=== PATIENT | female | born 1980 | race Caucasian/White ===

== ENCOUNTER 2016-12-18 19:38 | Observation (INO) | payer MEDICAID ==
[2016-12-18] MEDS ORDERED: NORMAL SALINE 1000 ML 1,000 ML IV ONE (20:21)
[2016-12-18] MEDS ORDERED: ONDANSETRON HCL INJ/PF 4 MG/2 ML SDV IV ONE (20:21)
--- NOTE | 2016-12-18 20:24 | ER Document Report ---
ED General - General Chief Complaint: Abdominal Pain Stated Complaint: RIGHT ABDOMINAL PAIN,BACK PAIN Notes: Patient is a 36-year-old female with a prior history of multiple sections who presents with 3 days of progressively worsening right lower quadrant abdominal pain. She does describe as a dull, constant, aching pain has been getting progressively worsens onset. No history of similar symptoms in the past. Nothing improves or worsens her pain. She has not seen her primary care doctor regarding today's concerns. She denies associated fever, nausea, vomiting, diaphoresis, vaginal bleeding or discharge. She is uncertain when her last menstrual period was. TRAVEL OUTSIDE OF THE [place] IN LAST 30 DAYS: No - Related Data Allergies/Adverse Reactions: clarithromycin [From Biaxin] Allergy (Severe, Verified 12/19/14 18:43) iodine [Iodine] Allergy (Severe, Verified 12/19/14 18:43) latex [Latex] Allergy (Severe, Verified 12/19/14 18:43) naproxen [Naproxen] Allergy (Severe, Verified 12/19/14 18:43) sucralfate [From Carafate] Allergy (Severe, Verified 12/19/14 18:43) Shortness of Breath shrimp Allergy (Uncoded 10/27/15 18:41) Past Medical History - General Information source: Patient - Social History Smoking Status: Never Smoker Frequency of alcohol use: None Drug Abuse: None Lives with: Spouse/Significant other Family History: Reviewed & Not Pertinent Patient has suicidal ideation: No Patient has homicidal ideation: No - Past Medical History Cardiac Medical History: Pulmonary Medical History: Neurological Medical History: Renal/ Medical History: Reports: Hx Kidney Stones. Denies: Hx Peritoneal Dialysis GI Medical History: Musculoskeltal Medical History: Reports Hx Arthritis, Reports Hx Musculoskeletal Trauma Psychiatric Medical History: Reports: Hx Attention Deficit Hyperactivity Disorder, Hx Bipolar Disorder, Hx Depression Infectious Medical History: Past Surgical History: Reports: Hx Hysterectomy - Partial, Hx Orthopedic Surgery - right arm surgery, Hx Tubal Ligation - Immunizations Hx Diphtheria, Pertussis, Tetanus Vaccination: Yes Review of Systems - Review of Systems Notes: Constitutional: Negative for fever. HENT: Negative for sore throat. Eyes: Negative for visual changes. Cardiovascular: Negative for chest pain. Respiratory: Negative for shortness of breath. Gastrointestinal: Positive for abdominal pain Genitourinary: Negative for dysuria. Musculoskeletal: Negative for back pain. Skin: Negative for rash. Neurological: Negative for headaches, weakness or numbness. 10 point ROS negative except as marked above and in HPI. Physical Exam - Vital signs Vitals: Temp Pulse BP Pulse Ox 98.1 F 83 122/88 H 96 12/18/16 19:46 12/18/16 19:46 12/18/16 19:46 12/18/16 19:46 Notes: Constitutional: Negative for fever. HENT: Negative for sore throat. Eyes: Negative for visual changes. Cardiovascular: Negative for chest pain. Respiratory: Negative for shortness of breath. Gastrointestinal: Positive for abdominal pain and vomiting Genitourinary: Negative for dysuria. Musculoskeletal: Negative for back pain. Skin: Negative for rash. Neurological: Negative for headaches, weakness or numbness. 10 point ROS negative except as marked above and in HPI. Course - Re-evaluation Re-evalutation: 12/18/16 20:22 Patient presents with a focal right lower quadrant tenderness that has been getting worse for the last 3 days. She does have impressive rebound tenderness to the area. Examination history are quite concerning for acute appendicitis so will obtain a CT abdomen and pelvis and reassess. Laboratories will likewise be obtained. Analgesics and antiemetics will be provided. 12/18/16 22:03 CT the abdomen and pelvis visualize the appendix well and it is noted to be normal. On reexam patient continues to be tender in the right lower quadrant and no right adnexal tenderness. Labs are noted to be normal although urinalysis is still pending. Will pursue a transvaginal ultrasound, which analysis of the urine and reassess. If transvaginal ultrasound is likewise normal and patient continues to have persistent pain in the right lower quadrant , will consult surgery. 12/19/16 00:56 I did consult with Dr. Sams will admit the patient for serial abdominal exams. - Vital Signs Vital signs: Temp Pulse Resp BP Pulse Ox 98.1 F 83 13 132/84 H 99 12/18/16 19:46 12/18/16 19:46 12/18/16 21:01 12/18/16 21:01 12/18/16 22:00 - Laboratory Result Diagrams: 12/18/16 20:00 12/18/16 20:00 Laboratory results interpreted by me: 04/13/17 20:00 MCV 98 H MCH 33.7 H - Diagnostic Test Radiology reviewed: Reports reviewed Discharge - Discharge Clinical Impression: Abdominal pain Qualifiers: Abdominal location: epigastric Qualified Code(s): R10.13 - Epigastric pain Nausea & vomiting Qualifiers: Vomiting type: unspecified Qualified Code(s): R11.2 - Nausea with vomiting, unspecified Condition: Fair Disposition: ADMITTED OBSERVATION Admitting Provider: Surgicalist - [facility] Admitted: Surgical Floor
[2016-12-18] MEDS: MORPHINE SULFATE 10 MG/ML INJ IV PRN ×2 (20:33→21:13)
[2016-12-18 20:40] LABS: ABSOLUTE BASOPHILS # (AUTO) 0.1 10^3/uL (0.0-0.2); ABSOLUTE EOSINOPHILS # (AUTO) 0.3 10^3/uL (0.0-0.6); ABSOLUTE LYMPHOCYTES (AUTO) 2.4 10^3/uL (0.5-4.7); ABSOLUTE MONOCYTES (AUTO) 0.7 10^3/uL (0.1-1.4); ABSOLUTE NEUT (AUTO) 5.2 10^3/uL (1.7-8.2); EOSINOPHILS % (AUTO) 3.9 % (0-6); HEMATOCRIT 37.4 % (36.0-47.0); HEMOGLOBIN 12.9 g/dL (12.0-15.5); HGB HCT DIFFERENCE 1.3; LYMPHOCYTES % (AUTO) 27.5 % (13-45); MEAN CORPUSCULAR HEMOGLOBIN 33.7 pg (27.0-33.4); MEAN CORPUSCULAR HGB CONC 34.4 g/dL (32.0-36.0); MEAN CORPUSCULAR VOLUME 98 fl (80-97); MONOCYTES % (AUTO) 8.2 % (3-13); RED BLOOD COUNT 3.83 10^6/uL (3.72-5.28); RED CELL DISTRIBUTION WIDTH 12.6 % (11.5-14.0); SEGMENTED NEUTROPHILS % (AUTO) 59.4 % (42-78); WHITE BLOOD COUNT 8.8 10^3/uL (4.0-10.5)
[2016-12-18 20:56] LABS: ANION GAP 9 (5-19); BLOOD UREA NITROGEN 11 mg/dL (7-20); CALCIUM 8.9 mg/dL (8.4-10.2); CARBON DIOXIDE 28 mmol/L (22-30); CHLORIDE 107 mmol/L (98-107); CREATININE RESULT 0.65 mg/dL (0.52-1.25); GLUCOSE 82 mg/dL (75-110); SODIUM 144.2 mmol/L (137-145)
[2016-12-18] MEDS ORDERED: DIPHENHYDRAMINE HCL 50 MG/ML VIAL IV ONE (21:03)
[2016-12-18] MEDS ORDERED: METHYLPREDNISOLONE INJ 125 MG/2 ML SDV IV ONE (21:03)
[2016-12-18] MEDS ORDERED: FAMOTIDINE INJ/PF 20 MG/2 ML SDV IV ONE (21:03)
[2016-12-18 22:04] LABS: ADD ON TESTING BLD IN LAB ACKNOWLEDGE
[2016-12-18 22:13] LABS: APPEARANCE,URINE CLEAR; BILIRUBIN,URINE NEGATIVE (NEGATIVE); GLUCOSE, URINE NEGATIVE (NEGATIVE); KETONES,URINE NEGATIVE (NEGATIVE); LEUKOCYTE ESTERASE,URINE NEGATIVE (NEGATIVE); NITRITE,URINE NEGATIVE (NEGATIVE); PROTEIN,URINE NEGATIVE (NEGATIVE); URINE SPECIFIC GRAVITY 1.006; UROBILINOGEN,URINE NEGATIVE mg/dL (<2.0)
[2016-12-19] MEDS ORDERED: FENTANYL CITRATE INJ/PF 100 MCG/2 ML AMPUL IV ONE (00:20)
[2016-12-19] MEDS ORDERED: ONDANSETRON HCL INJ/PF 4 MG/2 ML SDV IV PRN ×2 (01:39→03:42)
[2016-12-19] MEDS ORDERED: MORPHINE SULFATE 10 MG/ML INJ IV PRN ×4 (01:39→03:41)
[2016-12-19] MEDS ORDERED: NORMAL SALINE 1000 ML 1,000 ML IV PRN ×2 (01:40→03:42)
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
[2016-12-19 04:48] VITALS: BP 106/73
[2016-12-19 07:21] LABS: ABSOLUTE BASOPHILS # (AUTO) 0.1 10^3/uL (0.0-0.2); ABSOLUTE LYMPHOCYTES (AUTO) 0.5 10^3/uL (0.5-4.7); ABSOLUTE MONOCYTES (AUTO) 0.1 10^3/uL (0.1-1.4); ABSOLUTE NEUT (AUTO) 8.9 10^3/uL (1.7-8.2); BASOPHILS % (AUTO) 0.8 % (0-2); HEMOGLOBIN 13.4 g/dL (12.0-15.5); HGB HCT DIFFERENCE 1.2; LYMPHOCYTES % (AUTO) 5.2 % (13-45); MEAN CORPUSCULAR HEMOGLOBIN 33.4 pg (27.0-33.4); MEAN CORPUSCULAR HGB CONC 34.2 g/dL (32.0-36.0); MEAN CORPUSCULAR VOLUME 98 fl (80-97); RED CELL DISTRIBUTION WIDTH 12.6 % (11.5-14.0); WHITE BLOOD COUNT 9.5 10^3/uL (4.0-10.5)
[2016-12-19] MEDS ORDERED: MAGNESIUM CITRATE 296 ML BOTTLE PO ONE ×2 (10:30→16:00)
[2016-12-19] MEDS: GABAPENTIN 300 MG CAPSULE PO SCH ×2 (12:27→17:05)
[2016-12-19] MEDS ORDERED: IBUPROFEN 800 MG TABLET PO PRN (16:00)
--- NOTE | 2016-12-19 16:03 | PDOC CONSULTATION ---
Consultation Consult Date: 12/19/16 Attending physician:: GUADALUPE BYRD Consult reason:: RLQ pain History of Present Illness Admission Date/PCP: 12/19/16 07:46 HAFSA MOORE MD Patient complains of: Pt c/o right sided abd pain for several days. She reports that prior to that she also noted diarrhea, LAD in axilla and neck etc. and low grade fevers. SHe also states that she has been having diarrhea/loose stools. She was admitted for serial abdominal exams and for IV fluids. Dr. Morales requested consult for evaluation of Right ovarian cyst. Pt reportedly has stool in colon. History of Present Illness: MERVAT DOWNS is a 36 year old female Past Medical History LMP: na Gynecological Infection: No Cardiac Medical History: Pulmonary Medical History: Neurological Medical History: GI Medical History: Musculoskeltal Medical History: Reports: Arthritis Psychiatric Medical History: Reports: Attention Deficit Hyperactivity Disorder, Bipolar Disorder, Depression Social History Information Source: Patient Lives with: Spouse/Significant other Smoking Status: Current Every Day Smoker Last Time Smoked: Today Frequency of Alcohol Use: Occasional Hx Recreational Drug Use: No Drugs: None Hx Prescription Drug Abuse: No - Advance Directive Resuscitation Status: Full Code Family History Family History: Reviewed & Not Pertinent Parental Family History Reviewed: No Children Family History Reviewed: NA Sibling(s) Family History Reviewed.: NA Medication/Allergy Home Medications: Gabapentin [Neurontin] 600 mg PO Q6 12/19/16 Methylphenidate HCl [Ritalin LA] 30 mg PO QAM 12/19/16 Methylphenidate HCl [Ritalin] 20 mg PO NOON 12/19/16 Prazosin HCl [Minipress] 1 mg PO QHS 12/19/16 Allergies/Adverse Reactions: clarithromycin [From Biaxin] Allergy (Severe, Verified 12/19/14 18:43) iodine [Iodine] Allergy (Severe, Verified 12/19/14 18:43) latex [Latex] Allergy (Severe, Verified 12/19/14 18:43) naproxen [Naproxen] Allergy (Severe, Verified 12/19/14 18:43) sucralfate [From Carafate] Allergy (Severe, Verified 12/19/14 18:43) Shortness of Breath shrimp Allergy (Uncoded 10/27/15 18:41) Review of Systems Constitutional: PRESENT: fever(s) - pt reports low grade temps. ABSENT: chills , headache(s), weight gain, weight loss Gastrointestinal: PRESENT: abdominal pain, bloating, constipation, diarrhea, nausea. ABSENT: heartburn, hematemesis, hematochezia, melena, vomiting Neurological: PRESENT: abnormal gait - due to pain. ABSENT: abnormal speech, confusion, dizziness, focal weakness, syncope Psychiatric: ABSENT: anxiety, depression, homidical ideation, suicidal ideation Endocrine: ABSENT: cold intolerance, heat intolerance, polydipsia, polyuria Hematologic/Lymphatic: PRESENT: as per HPI Physical Exam - Physical Exam Vital Signs: Temp Pulse Resp BP Pulse Ox 97.7 F 70 20 106/73 100 12/19/16 03:57 12/19/16 03:57 12/19/16 03:57 12/19/16 03:57 12/19/16 03:57 General appearance: PRESENT: cooperative, mild distress, thin, well-developed Head exam: PRESENT: atraumatic Respiratory exam: PRESENT: clear to auscultation osbaldo, symmetrical, unlabored. ABSENT: rales, tachypnea, wheezes Cardiovascular exam: PRESENT: RRR. ABSENT: diastolic murmur, rubs, systolic murmur Pulses: PRESENT: normal dorsalis pedis pul, +2 pedal pulses bilateral GI/Abdominal exam: PRESENT: guarding, hyperactive bowel sounds, soft, tenderness - tender throughout abd with guarding. ABSENT: distended, firm, mass , Leonardo's sign, organolmegaly, rebound Rectal exam: PRESENT: deferred Extremities exam: PRESENT: full ROM. ABSENT: calf tenderness, clubbing, pedal edema Musculoskeletal exam: PRESENT: ambulatory Neurological exam: PRESENT: alert, awake, oriented to person, oriented to place , oriented to time, oriented to situation, CN II-XII grossly intact. ABSENT: motor sensory deficit Psychiatric exam: PRESENT: appropriate affect, normal mood. ABSENT: homicidal ideation, suicidal ideation Skin exam: PRESENT: dry, intact, warm. ABSENT: cyanosis, rash Result Impressions: Abdomen/Pelvis CT 12/18/16 20:22 IMPRESSION: NO SIGNIFICANT OR ACUTE FINDING IN THE ABDOMEN OR PELVIS ON CT SCAN WITH IV CONTRAST. Transvaginal US 12/18/16 21:59 IMPRESSION: Normal physiologic cycle cumulus oophorus on the right. Status post hysterectomy. Assessment & Plan - Diagnosis (1) Abdominal pain Qualifiers: Abdominal location: epigastric Qualified Code(s): R10.13 - Epigastric pain Is this a current diagnosis for this admission?: YesPlan: Admitting service treating pt for constipation/obstipation as cause of pain. Continue care per admitting service. (2) Ovarian cyst Qualifiers: Laterality: right Qualified Code(s): N83.201 - Unspecified ovarian cyst, right side Is this a current diagnosis for this admission?: YesPlan: Small overall simple appearing cyst, small cyst within cyst wall. Pt with h/o Hysterectomy for Endometriosis 7 years ago and reports that pain from endometriosis resolved after hysterectomy. She states that she knows this is not cyst pain and not her endometriosis. I reviewed with her the findings of the US and small simple appearing cyst with normal blood flow. No w/o hemorrhagic cyst and no e/o torsion. I agree that this is not pain related to this small simple ovarian cyst but would recommend f/u US in 6-8wks for resolution. Appreciate consult from Dr. Lincoln. Will f/u with us as outpatient [phone] once her acute issue is resolved. Appreciate consult. Not a BACK WEDGER cause for pt's pain at this time. If we can be of further assistance please notify us. - Time Time Spent: 30 to 50 Minutes Critical Time spent with patient: Less than 15 minutes Medications reviewed and adjusted accordingly: Yes Anticipated discharge: Home Within: within 48 hours - Inpatient Certification Medical Necessity: Need For IV Fluids, Need for Pain Control Post Hospital Care: D/C Hose Tubing Backer Documentation
[2016-12-19] MEDS ORDERED: (PENDING PHARMACY ID) (Prazosin Hcl [Minipress] 1 MG) PO SCH (22:00)
--- NOTE | 2016-12-24 16:53 | DISCHARGE SUMMARY E ---
Discharge Summary NAME: MERVAT DOWNS : 1980 AGE: 36Y ADMITTED: 12/19/2016 DISCHARGED: 12/19/2016 SUMMARY OF HOSPITALIZATION: The patient is a 36-year-old white female admitted to the surgicalist service for abdominal pain of unexplained etiology. She had a CT scan of the abdomen and pelvis in the emergency department which showed no significant pathology. The study was limited due to the absence of oral contrast. The patient was admitted and observed, evaluated by MANAGER MOLECULAR service and was found to have what was felt to be pain of unexplained etiology. She was found to have a simple cyst of the right ovary which was felt not to be responsible for her symptoms. Recommendations were made for followup on an outpatient basis. By the afternoon of the second hospital day, she was discharged home. FINAL DIAGNOSIS: Abdominal pain of unclear etiology; no evidence of acute intraabdominal or pelvic pathology. The patient will be discharged home to the care of family. Follow up with Dr. Lincoln on a p.r.n. basis and follow [facility] with [facility] to monitor the status of her left ovary. DICTATING PHYSICIAN: EMMA LINCOLN M.D. [id number] PHY#: [id number] ID: [id number] JOB#: [id number] ACCT: [id number] cc:Trenton PEREZ M.D. [facility],
== END 2016-12-19 21:55 | disposition home or self-care (01) ==
LOC: ER 19:38 → EH 12-19 01:16 → UNDOADMOB 12-19 01:16 → 2N 12-19 03:42 → EH 12-19 03:42 → 2N 12-19 07:46
PROVIDERS: ATTEND Surgery
DX: R10.31 Right lower quadrant pain (principal); N83.291 Other ovarian cyst, right side; R19.7 Diarrhea, unspecified; R14.0 Abdominal distension (gaseous); R10.13 Epigastric pain; R11.2 Nausea with vomiting, unspecified; R26.9 Unspecified abnormalities of gait and mobility; Z79.899 Other long term (current) drug therapy; F17.200 Nicotine dependence, unspecified, uncomplicated; Z90.710 Acquired absence of both cervix and uterus; Z87.42 Personal history of other diseases of the female genital tract; Z87.442 Personal history of urinary calculi; Z98.51 Tubal ligation status
CPT/HCPCS: 96376; 99285; 96361; 96374; 96375; 36415 ×2; 84702; 85025 ×2; 81025; 80048; 81001; 76830; 93976; 74177; J3490 ×3; J1200; J3010; J2930; J2270 ×2; J2405; J7030 ×2; S0028; G0378

== ENCOUNTER 2017-10-06 17:35 | Emergency (ER) | payer MEDICAID ==
[2017-10-06] MEDS ORDERED: MORPHINE SULFATE 10 MG/ML INJ IV ONE (17:47)
[2017-10-06] MEDS ORDERED: ONDANSETRON HCL INJ/PF 4 MG/2 ML SDV IV ONE (17:48)
[2017-10-06] MEDS ORDERED: RINGERS SOLUTION,LACTATED 1,000 ML IV ONE (18:01)
[2017-10-06] MEDS ORDERED: HYDROMORPHONE HCL INJ/PF 2 MG/ML AMPULE IV ONE ×2 (18:02→22:43)
[2017-10-06] MEDS ORDERED: DIPHENHYDRAMINE HCL 50 MG/ML VIAL IV ONE (18:05)
[2017-10-06] MEDS ORDERED: METOCLOPRAMIDE HCL INJ/PF 10 MG/2 ML SDV IV ONE (18:05)
--- NOTE | 2017-10-06 18:05 | ER Document Report ---
ED General - General Stated Complaint: ABDOMINAL PAIN Time Seen by Provider: 10/06/17 17:53 Mode of Arrival: Medic Information source: Patient Notes: 37-year-old female, history of endometriosis, ovarian cysts status post partial hysterectomy 9 years ago presents to the emergency room with lower abdominal pain. Patient states the pain started today. She has had pain like this in the past and was admitted in the springtime. TRAVEL OUTSIDE OF THE [place] IN LAST 30 DAYS: No - HPI Onset: Just prior to arrival Onset/Duration: Gradual Quality of pain: Dull Severity: Moderate Pain Level: 3 Associated symptoms: Nausea. denies: Chest pain, Fever, Shortness of breath Exacerbated by: Denies Relieved by: Denies Similar symptoms previously: Yes Recently seen / treated by doctor: No - Related Data Allergies/Adverse Reactions: clarithromycin [From Biaxin] Allergy (Severe, Verified 12/19/14 18:43) iodine [Iodine] Allergy (Severe, Verified 12/19/14 18:43) latex [Latex] Allergy (Severe, Verified 12/19/14 18:43) naproxen [Naproxen] Allergy (Severe, Verified 12/19/14 18:43) sucralfate [From Carafate] Allergy (Severe, Verified 12/19/14 18:43) Shortness of Breath shrimp Allergy (Uncoded 10/27/15 18:41) Past Medical History - General Information source: Patient - Social History Smoking Status: Current Every Day Smoker Cigarette use (# per day): Yes - Half pack per day Chew tobacco use (# tins/day): No Smoking Education Provided: No Frequency of alcohol use: None Drug Abuse: None Lives with: Family Family History: Reviewed & Not Pertinent Patient has suicidal ideation: No Patient has homicidal ideation: No - Past Medical History Cardiac Medical History: Reports: None Pulmonary Medical History: Reports: None EENT Medical History: Reports: None Neurological Medical History: Reports: None Endocrine Medical History: Reports: None Renal/ Medical History: Reports: Hx Kidney Stones. Denies: Hx Peritoneal Dialysis GI Medical History: Musculoskeltal Medical History: Reports Hx Arthritis, Reports Hx Musculoskeletal Trauma Psychiatric Medical History: Reports: Hx Attention Deficit Hyperactivity Disorder, Hx Bipolar Disorder, Hx Depression Infectious Medical History: Past Surgical History: Reports: Hx Hysterectomy - Partial, Hx Orthopedic Surgery - right arm surgery, Hx Tubal Ligation - Immunizations Hx Diphtheria, Pertussis, Tetanus Vaccination: Yes Review of Systems - Review of Systems Constitutional: denies: Chills, Fever EENT: No symptoms reported Cardiovascular: Dizziness, Lightheaded Respiratory: No symptoms reported Gastrointestinal: Abdominal pain, Nausea Genitourinary: No symptoms reported Female Genitourinary: No symptoms reported Musculoskeletal: No symptoms reported Skin: No symptoms reported Hematologic/Lymphatic: No symptoms reported Neurological/Psychological: See HPI, Headaches Physical Exam - Vital signs Vitals: Temp Pulse BP Pulse Ox 97.8 F 103 H 115/75 100 10/06/17 17:46 10/06/17 17:46 10/06/17 17:46 10/06/17 17:46 Notes: Physical exam: GENERAL: 37-year-old female, alert and oriented 3, no acute distress HEAD: Atraumatic, normocephalic. EYES: Pupils equal round and reactive to light, extraocular movements intact, sclera anicteric, conjunctiva are normal. ENT: TMs normal, nares patent, oropharynx clear without exudates. Moist mucous membranes. NECK: Normal range of motion, supple without obvious mass or JVD. LUNGS: Breath sounds clear to auscultation bilaterally and equal. No wheezes rales or rhonchi. HEART: Regular rate and rhythm without murmurs, rubs or gallops. ABDOMEN: Soft, normoactive bowel sounds. No tenderness to palpation. No guarding, no rebound. No masses appreciated. EXTREMITIES: Normal range of motion, no pitting or edema. No clubbing or cyanosis. NEUROLOGICAL: Neck supple, no meningismus, negative Brudzinski's and Kernig's, Cranial nerves II through XII grossly intact. Normal speech, moving all extremities. PSYCH: Normal mood, normal affect. SKIN: Warm, Dry, normal turgor, no rashes or lesions noted. Course - Re-evaluation Re-evalutation: 10/07/17 00:21 She given IV fluids, IV Reglan, IV Benadryl, IV Dilaudid. She was observed for several hours and looks much better and is fully alert. She states she feels much better. Her repeat abdomen exam is soft and no tenderness. She states her headache is much better after the Reglan. - Vital Signs Vital signs: Temp Pulse Resp BP Pulse Ox 98.4 F 85 17 108/58 L 98 10/06/17 19:33 10/06/17 19:33 10/06/17 19:33 10/06/17 19:33 10/06/17 19:33 - Laboratory Result Diagrams: 10/06/17 17:58 10/06/17 17:58 Laboratory results interpreted by me: 10/06/17 10/06/17 17:58 17:58 MCV 98 H MCH 33.9 H Glucose 125 H - Diagnostic Test Radiology reviewed: Image reviewed, Reports reviewed - CT of the abdomen shows no acute intra-abdominal process - EKG Interpretation by Me Rate: Normal Rhythm: NSR - EKG shows normal sinus rhythm with a ventricular rate of 84, no acute ST-T wave changes Discharge - Discharge Clinical Impression: Abdominal pain, Migraine headache Condition: Stable Disposition: HOME, SELF-CARE Instructions: Abdominal Pain ([facility]), Migraine Headache ([facility]) Additional Instructions: As we discussed, your EKG, heart enzymes, electrolytes, kidney function and liver function looked good tonight. CT of the abdomen showed no surgical emergencies, it also showed no suspicious masses. Thank you for choosing [facility] for your care. The examination and treatment you have received in the Emergency Department today has been rendered on an emergency basis only and is not intended to be a substitute for complete medical care. You should contact your doctor as it is important that she/he examine you for any new or remaining problems. If given a copy of any lab tests or radiology reports, please bring them with you when you see your physician. If your problem worsens or new symptoms appear and you are unable to arrange prompt follow-up care, return to the Emergency Department. Specific signs to look out for: Worsening pain, fever (temperature greater than 100.4) or any concerns or getting worse. Any other instructions: Take pain medicine as prescribed. Drink plenty of fluids, rest. Take the Reglan for nausea or headache. The pain medicine you're taking prescribed as a narcotic. There are several important things you should know about this medicine: 1. This medicine contains Tylenol: It is important that you do not take Tylenol (or acetaminophen) while on this medicine. Tylenol is metabolized by the liver and taking too much Tylenol (acetaminophen) can lay to liver damage and even liver failure. 2. Taking narcotics for too long can lead to physical and mental dependence. Take this medicine only if really needed and in the lowest quantity to achieve pain relief. 3. Do not drink alcohol while on this medicine. Alcohol interacts with narcotics and the combination can be dangerous. 4. Do not drive or operate machinery while on this medicine. 5. Narcotics do cause constipation, so drink plenty of fluids and daily stool softeners. Primary Care Doctor's affiliated with [facility]: If you do not have a primary care doctor or you are unable to get an appointment during that time, you can try one of the doctor's below. These are internal medicine doctor's that have admitting priveledges to the hospital ( they will see you both in the office as well as in this hospital if you are ever hospitalized here). Dr. Johnnie Givens Valdez [address], [place] [phone] Dr Rajan Address: [address] [place] [address] , [place] [address] Dr Giles Address: [address] [place] [address] , [place] [address] If you don't have insurance: follow-up at the [facility] which is a free clinic. [address], [address] [place] [phone] Prescriptions: Metoclopramide HCl [Reglan 10 mg Tablet] 1 - 2 tab PO ASDIR PRN #14 tablet PRN Reason: Oxycodone HCl/Acetaminophen [Percocet 5-325 mg Tablet] 1 - 2 tab PO ASDIR PRN # 25 tablet PRN Reason: Referrals: HAFSA MOORE MD [Primary Care Provider] - Follow up as needed
[2017-10-06 18:15] LABS: ABSOLUTE BASOPHILS # (AUTO) 0.1 10^3/uL (0.0-0.2); ABSOLUTE EOSINOPHILS # (AUTO) 0.2 10^3/uL (0.0-0.6); ABSOLUTE LYMPHOCYTES (AUTO) 2.1 10^3/uL (0.5-4.7); ABSOLUTE MONOCYTES (AUTO) 0.4 10^3/uL (0.1-1.4); ABSOLUTE NEUT (AUTO) 4.3 10^3/uL (1.7-8.2); BASOPHILS % (AUTO) 0.9 % (0-2); EOSINOPHILS % (AUTO) 3.4 % (0-6); HEMOGLOBIN 14.1 g/dL (12.0-15.5); LYMPHOCYTES % (AUTO) 29.7 % (13-45); MEAN CORPUSCULAR HEMOGLOBIN 33.9 pg (27.0-33.4); MEAN CORPUSCULAR HGB CONC 34.4 g/dL (32.0-36.0); MEAN CORPUSCULAR VOLUME 98 fl (80-97); MONOCYTES % (AUTO) 5.4 % (3-13); PLATELET COUNT 284 10^3/uL (150-450); RED BLOOD COUNT 4.17 10^6/uL (3.72-5.28); RED CELL DISTRIBUTION WIDTH 13.3 % (11.5-14.0); SEGMENTED NEUTROPHILS % (AUTO) 60.6 % (42-78); TOTAL CELLS COUNTED % (AUTO) 100 %; WHITE BLOOD COUNT 7.1 10^3/uL (4.0-10.5)
[2017-10-06 18:29] LABS: ALANINE AMINOTRANSFERASE 19 U/L (9-52); ALBUMIN 4.2 g/dL (3.5-5.0); ALKALINE PHOSPHATASE 41 U/L (38-126); ANION GAP 7 (5-19); ASPARTATE AMINO TRANSFERASE 14 U/L (14-36); BILIRUBIN,DIRECT 0.2 mg/dL (0.0-0.4); BILIRUBIN,TOTAL 0.6 mg/dL (0.2-1.3); BLOOD UREA NITROGEN 7 mg/dL (7-20); CALCIUM 9.2 mg/dL (8.4-10.2); CARBON DIOXIDE 26 mmol/L (22-30); CHLORIDE 105 mmol/L (98-107); GLUCOSE 125 mg/dL (75-110); LIPASE 133.1 U/L (23-300); POTASSIUM 3.8 mmol/L (3.6-5.0); SODIUM 138.3 mmol/L (137-145); TOTAL PROTEIN 6.4 g/dL (6.3-8.2)
[2017-10-06 18:39] LABS: APPEARANCE,URINE CLEAR; BILIRUBIN,URINE NEGATIVE (NEGATIVE); COLOR,URINE STRAW; GLUCOSE, URINE NEGATIVE (NEGATIVE); KETONES,URINE NEGATIVE (NEGATIVE); LEUKOCYTE ESTERASE,URINE NEGATIVE (NEGATIVE); NITRITE,URINE NEGATIVE (NEGATIVE); PROTEIN,URINE NEGATIVE (NEGATIVE); URINE SPECIFIC GRAVITY 1.004; UROBILINOGEN,URINE NEGATIVE mg/dL (<2.0)
[2017-10-06 21:25] LABS: CREATINE KINASE MB < 0.22 ng/mL (<4.55); TROPONIN I < 0.012 ng/mL
--- NOTE | 2017-10-06 22:09 | RADIOLOGY REPORT (SQ) ---
EXAM DESCRIPTION: CT ABD/PELVIS NO ORAL OR IV COMPLETED DATE/TIME: 10/06/2017 9:38 pm REASON FOR STUDY: LUQ pain, rib fx, on blood thinner COMPARISON: 2014. TECHNIQUE: CT scan of the abdomen and pelvis performed without intravenous or oral contrast. Images reviewed with lung, soft tissue, and bone windows. Reconstructed coronal and sagittal MPR images revi ewed. All images stored on PACS. All CT scanners at this facility use dose modulation, iterative reconstruction, and/or weight based d osing when appropriate to reduce radiation dose to as low as reasonably achievable (ALARA). [facility]: Dose Right [facility]: CareDose [facility]: Dose Right [facility]: Teradose 4D [facility]: Smart [employer] RADIATION DOSE: CT Rad equipment meets quality standard of care and radiation dose reduction techniq ues were employed. CTDIvol: 4.8 mGy. DLP: 230 mGy-cm.mGy. LIMITATIONS: None. FINDINGS: LOWER CHEST: No significant findings. No nodules or infiltrates. NON-CONTRASTED LIVER, SPLEEN, ADRENALS: Evaluation limited by lack of IV contrast. No identified sign ificant masses. PANCREAS: No masses. No peripancreatic inflammatory changes. GALLBLADDER: No identified stones by CT criteria. No inflammatory changes to suggest cholecystitis. RIGHT KIDNEY AND URETER: No solid masses. No significant calcification. No hydronephrosis or hydroure ter. LEFT KIDNEY AND URETER: No solid masses. No significant calcification. No hydronephrosis or hydrouret er. AORTA AND RETROPERITONEUM: No aneurysm. No retroperitoneal masses or adenopathy. BOWEL AND PERITONEAL CAVITY: No obvious masses or inflammatory changes. No free fluid. APPENDIX: Limited visualization, probably normal. No right lower quadrant inflammatory process. PELVIS, BLADDER, AND ABDOMINAL WALL:No abnormal masses. No free fluid. Bladder normal. BONES: No significant findings. OTHER: No other significant finding. IMPRESSION: NO SIGNIFICANT OR ACUTE PROCESS IN THE ABDOMEN OR PELVIS. TECHNICAL DOCUMENTATION: JOB ID: [id number] Quality ID # [id number]: Final reports with documentation of one or more dose reduction techniques (e.g., Au tomated exposure control, adjustment of the mA and/or kV according to patient size, use of iterative reconstruction technique) 2010 [employer]- All Rights Reserved
[2017-10-07 00:27] VITALS: BP 113/74
--- NOTE | 2017-10-07 08:14 | EKG REPORT ---
SEVERITY:- NORMAL ECG - SINUS RHYTHM : Confirmed by: Arron Kinney MD 07-Oct-2017 08:13:02
== END 2017-10-07 00:27 | disposition home or self-care (01) ==
LOC: ER 17:35
DX: G43.909 Migraine, unspecified, not intractable, without status migrainosus (principal); R10.9 Unspecified abdominal pain; R11.0 Nausea; F17.210 Nicotine dependence, cigarettes, uncomplicated; Z90.710 Acquired absence of both cervix and uterus; Z88.3 Allergy status to other anti-infective agents; Z91.040 Latex allergy status; Z91.013 Allergy to seafood; Z87.442 Personal history of urinary calculi; Z98.51 Tubal ligation status
CPT/HCPCS: 93005; 96376; 99285; 96361; 96374; 96375; 36415; 82553; 82550; 83690; 85025; 80053; 81001; 84484; 74176; 93010; J1200; J2765; J1170; J7120

== ENCOUNTER → 2018-01-15 | Outpatient (CLI) | payer MEDICAID ==
--- NOTE | 2018-01-15 16:06 | RADIOLOGY REPORT (SQ) ---
EXAM DESCRIPTION: L SPINE WHOLE COMPLETED DATE/TIME: 01/15/2018 3:56 pm REASON FOR STUDY: LOW BACK PAIN M54.5 LOW BACK PAIN COMPARISON: 01/25/2013 NUMBER OF VIEWS: Five views including obliques. TECHNIQUE: AP, lateral, oblique, and sacral radiographic images acquired of the lumbar spine. LIMITATIONS: None. FINDINGS: MINERALIZATION: Normal. SEGMENTATION: Normal. No transitional anatomy. ALIGNMENT: Unchanged mild convex left scoliosis. VERTEBRAE: Maintained height. No fracture or worrisome bone lesion. DISCS: Preserved height. No significant osteophytes or end plate irregularity. POSTERIOR ELEMENTS: Pedicles and facets are intact. No pars defect or posterior arch defects. HARDWARE: None in the spine. PARASPINAL SOFT TISSUES: Normal. PELVIS: Intact as visualized. No fractures or worrisome bone lesions. SI joints intact. OTHER: No other significant finding. IMPRESSION: Mild scoliosis. No significant change. TECHNICAL DOCUMENTATION: JOB ID: [id number] [employer]- All Rights Reserved Reading location - IP/workstation name: Unknown
== END ==
LOC: RAD 15:32
PROVIDERS: ATTEND Physician Assistant
DX: M54.5 Low back pain (principal); M41.9 Scoliosis, unspecified
CPT/HCPCS: 72110

== ENCOUNTER 2018-05-02 14:18 | Emergency (ER) | payer MEDICAID ==
[2018-05-02] MEDS ORDERED: ONDANSETRON 4 MG TAB.RAPDIS PO ONE (16:08)
[2018-05-02] MEDS ORDERED: HYDROCODONE/ACETAMINOPHEN 5-325 MG TABLET PO ONE (16:09)
--- NOTE | 2018-05-02 16:38 | RADIOLOGY REPORT (SQ) ---
EXAM DESCRIPTION: CT CERVICAL SPINE WITHOUT COMPLETED DATE/TIME: 05/02/2018 4:27 pm REASON FOR STUDY: neck pain post fall COMPARISON: None. TECHNIQUE: Axial images acquired through the cervical spine without intravenous contrast. Images re viewed with lung, soft tissue and bone windows. Reconstructed coronal and sagittal MPR images review ed. Images stored on PACS. All CT scanners at this facility use dose modulation, iterative reconstruction, and/or weight based d osing when appropriate to reduce radiation dose to as low as reasonably achievable (ALARA). [facility]: Dose Right [facility]: CareDose [facility]: Dose Right [facility]: Teradose 4D [facility]: [employer] RADIATION DOSE: CT Rad equipment meets quality standard of care and radiation dose reduction techniq ues were employed. CTDIvol: 8.2 mGy. DLP: 169 mGy-cm. mGy. LIMITATIONS: None. FINDINGS: ALIGNMENT: Anatomic. MINERALIZATION: Normal. VERTEBRAL BODIES: No fractures or dislocation. DISCS: No significant disc disease. FACETS, LATERAL MASSES, POSTERIOR ELEMENTS: No fractures. No dislocation. No acute findings. HARDWARE: None in the spine. VISUALIZED RIBS: No fractures. LUNG APICES AND SOFT TISSUES: No significant or acute findings. OTHER: No other significant finding. IMPRESSION: NO ACUTE OR SIGNIFICANT FINDINGS IN THE CERVICAL SPINE. TECHNICAL DOCUMENTATION: JOB ID: [id number] Quality ID # [id number]: Final reports with documentation of one or more dose reduction techniques (e.g., Au tomated exposure control, adjustment of the mA and/or kV according to patient size, use of iterative reconstruction technique) 2010 [employer]- All Rights Reserved Reading location - IP/workstation name: [email or web address]
[2018-05-02] MEDS ORDERED: DIPHENHYDRAMINE HCL 50 MG/ML VIAL IV ONE (17:18)
[2018-05-02] MEDS ORDERED: PROCHLORPERAZINE EDISYLATE INJ 10 MG/2 ML VIAL IV ONE (17:18)
[2018-05-02] MEDS ORDERED: KETOROLAC TROMETHAMINE INJ/PF 30 MG/1 ML SDV IV ONE (17:18)
--- NOTE | 2018-05-02 17:22 | ER Document Report ---
ED Headache - General Chief Complaint: Headache Stated Complaint: BACK PAIN Time Seen by Provider: 05/02/18 16:08 Mode of Arrival: Ambulatory Information source: Patient Notes: 37-year-old female presented ED for complaint of headache nausea with severe back and neck pain. She states she has not had any injury and she has frequent back pain and neck pain. She states her main concern is her headache. Patient was seen up in the pit by who ordered a CAT scan of the neck which was negative for any acute changes. Patient's pupils were equal and right active light respirations regular and unlabored speaking in clear complete sentences and walks with a even steady gait. Patient is in no acute distress. TRAVEL OUTSIDE OF THE [place] IN LAST 30 DAYS: No - HPI Patient complains to provider of: Headache, "Migraine" Patient reports: Frequent migraines Onset was: Gradual Timing: Still present Quality of pain: Achy, Other Severity: Moderate Pain Level: 3 Associated symptoms: Double/blurred vision, Nausea/vomiting, Stiff neck Exacerbated by: Noise, Movement, Position Similar symptoms previously: Yes Recently seen / treated by doctor: No - Related Data Allergies/Adverse Reactions: clarithromycin [From Biaxin] Allergy (Severe, Verified 12/19/14 18:43) iodine [Iodine] Allergy (Severe, Verified 12/19/14 18:43) latex [Latex] Allergy (Severe, Verified 12/19/14 18:43) naproxen [Naproxen] Allergy (Severe, Verified 12/19/14 18:43) sucralfate [From Carafate] Allergy (Severe, Verified 12/19/14 18:43) Shortness of Breath shrimp Allergy (Uncoded 10/27/15 18:41) Past Medical History - General Information source: Patient - Social History Smoking Status: Current Some Day Smoker Cigarette use (# per day): Yes - Maybe once or twice a week Chew tobacco use (# tins/day): No Smoking Education Provided: Yes - 4 minutes Frequency of alcohol use: Social Drug Abuse: None Lives with: Family Family History: Reviewed & Not Pertinent Patient has suicidal ideation: No Patient has homicidal ideation: No - Past Medical History Cardiac Medical History: Reports: None Pulmonary Medical History: Reports: None EENT Medical History: Reports: None Neurological Medical History: Reports: None Endocrine Medical History: Reports: Hx Graves' Disease Renal/ Medical History: Reports: Hx Kidney Stones, Other - Endometriosis Malignancy Medical History: Reports: None GI Medical History: Reports: Hx Colonoscopy Musculoskeletal Medical History: Reports Hx Arthritis, Reports Hx Muscle Spasm, Reports Hx Musculoskeletal Deformity, Reports Hx Musculoskeletal Trauma Skin Medical History: Reports None Psychiatric Medical History: Reports: Hx Attention Deficit Hyperactivity Disorder, Hx Bipolar Disorder, Hx Depression, Hx Post Traumatic Stress Disorder Traumatic Medical History: Reports: Hx Fractures - Jaw wrist elbow Infectious Medical History: Past Surgical History: Reports: Hx Gynecologic Surgery - Multiple laparoscopies , Hx Hysterectomy, Hx Oral Surgery - General surgery, Hx Orthopedic Surgery - right arm surgery elbow and wrist, Hx Tubal Ligation - Immunizations Immunizations up to date: Yes Hx Diphtheria, Pertussis, Tetanus Vaccination: Yes Review of Systems - Review of Systems Constitutional: No symptoms reported EENT: No symptoms reported Cardiovascular: No symptoms reported Respiratory: No symptoms reported Gastrointestinal: Nausea Genitourinary: No symptoms reported Female Genitourinary: No symptoms reported Musculoskeletal: Back pain, Muscle pain, Neck pain Skin: No symptoms reported Hematologic/Lymphatic: No symptoms reported Neurological/Psychological: Headaches -: Yes All other systems reviewed and negative Physical Exam - Vital signs Vitals: Temp Pulse Resp BP Pulse Ox 98.6 F 81 18 109/75 99 05/02/18 14:40 05/02/18 14:40 05/02/18 14:40 05/02/18 14:40 05/02/18 14:40 Interpretation: Normal - General General appearance: Appears well, Alert - HEENT Head: Normocephalic, Atraumatic Eyes: Normal Pupils: PERRL Ears: Normal External canal: Normal Tympanic membrane: Normal Nasal: Normal Mouth/Lips: Normal Mucous membranes: Normal Pharynx: Normal Neck: Normal - Respiratory Respiratory status: No respiratory distress Chest status: Nontender Breath sounds: Normal Chest palpation: Normal - Cardiovascular Rhythm: Regular Heart sounds: Normal auscultation Murmur: No - Abdominal Inspection: Normal Distension: No distension Bowel sounds: Normal Tenderness: Nontender Organomegaly: No organomegaly - Back Back: Normal, Tender. No: Deformity/step-off, CVA tenderness, Vertebra tenderness, Scars, Scoliosis, Wounds - Extremities General upper extremity: Normal inspection, Nontender, Normal color, Normal ROM , Normal temperature General lower extremity: Normal inspection, Nontender, Normal color, Normal ROM , Normal temperature, Normal weight bearing. No: Joi's sign - Neurological Neuro grossly intact: Yes Cognition: Normal Orientation: AAOx4 [place] Coma Scale Eye Opening: Spontaneous Miah Coma Scale Verbal: Oriented Miah Coma Scale Motor: Obeys Commands Miah Coma Scale Total: 15 Speech: Normal Motor strength normal: LUE, RUE, LLE, RLE Sensory: Normal - Psychological Associated symptoms: Normal affect, Normal mood - Skin Skin Temperature: Warm Skin Moisture: Dry Skin Color: Normal Course - Re-evaluation Re-evalutation: 05/03/18 02:49 CT discussed with patient. Patient did not have any vertebral tenderness to the back or neck. Patient was treated with [place] in the [facility] area by the [facility] doctor. She was treated with Compazine and Toradol and Benadryl IV with fluids in the emergency room. After her headache cocktail she denied any pain. She states she was ready to go home and her was called to come and get her. She was discharged home after she was able to verbalize understanding and agreement with treatment plan. - Vital Signs Vital signs: Temp Pulse Resp BP Pulse Ox 98.2 F 62 16 115/83 100 05/02/18 18:35 05/02/18 18:35 05/02/18 18:35 05/02/18 18:35 05/02/18 18:35 - Diagnostic Test Radiology reviewed: Image reviewed, Reports reviewed Discharge - Discharge Clinical Impression: Exacerbation of chronic back pain Headache Qualifiers: Headache type: unspecified Headache chronicity pattern: unspecified pattern Intractability: not intractable Qualified Code(s): R51 - Headache Nausea & vomiting Qualifiers: Vomiting type: unspecified Vomiting Intractability: non-intractable Qualified Code(s): R11.2 - Nausea with vomiting, unspecified Condition: Stable Disposition: HOME, SELF-CARE Instructions: Exercise Program for the Shoulder ([facility]), Stretching Exercises for the Back ([facility]) Additional Instructions: HEADACHE: The physician does not feel that the headache you are experiencing has a serious underlying cause. Most headaches are due to emotional stress, with resultant muscle tension (tension headache). Occasionally, headaches are secondary to changes in the blood vessels of the scalp (vascular headache and migraine headache). Sometimes, a headache is the first symptom of another developing illness, such as a viral infection. You have no evidence of stroke, bleeding, meningitis, or other serious cause of your headache. The treatment of headaches varies with the severity and cause of the pain. Not all headaches need pain shots. In fact, there is evidence that using narcotics for headaches may make them worse in the long run. The physician will determine the therapy that's in your best interest. If you develop a fever, if the headache is different from any you've previously experienced, or if the headache progressively worsens, then call your physician at once or go to the emergency room. Chronic Pain Control Stress, inactivity, and depression make pain more severe regardless of the cause of the pain. Stress and poor physical condition can cause pain such as headaches and backache. Relaxation: Rest in a quiet place with your eyes closed for 20 minutes twice daily. Concentrate on a pleasant image, or simply "feel" your breathing. Clear your mind. Stress management: Deal with your "stressors." Either take action, or eliminate the stressor from your life. Don't let things hang over you. Accept those things you can't change. Nutrition: Eat small, balanced meals -- don't skip, don't overeat. Meals should be high-carbohydrate, low-sugar, low-fat. Exercise: Exercise helps painful conditions and eases stress. Get 30 minutes of moderate exercise, five days a week. Do an activity that does not flare your pain. Precautions: Pain which continues to disrupt daily activities, or which changes in nature, requires a medical evaluation. Pain Clinic referral is available. We do not manage chronic pain in the Emergency Department. We will try to appropriately help you through an acute flare of your chronic painful condition , but for on-going chronic pain that does not improve, you will need to see your private doctor or house painter. We do not provide repeated medication management of chronic painful conditions. If you wish, we can provide the name of local pain management physicians. LOW BACK PAIN: Three out of every four people will have an episode of disabling back pain during their lifetime. Most commonly the pain is due to straining of the muscles and ligaments in the low back. Usual treatment includes: (1) Rest on a firm surface. Avoid lying on your stomach. (2) Ice pack the painful area. After a few days, gentle heat may be used intermittently to relax the area, or ice packs can be continued. (3) Medication may be needed -- muscle relaxers and antiinflammatory medicines are commonly used. (4) As the back improves, exercises are prescribed to strengthen the back and abdominal muscles. Your doctor will advise you on the proper care for your back at each stage in your recovery. You may be better in a few days -- or healing may take several weeks. If new symptoms of a "herniated disc" (radiation of pain, numbness, or tingling down the back of the leg or weakness in the leg) occur, you should be re-examined. Further testing may be necessary. USE OF DIPHENHYDRAMINE: Diphenhydramine (Benadryl) is an antihistamine and has been recommended to help treat your headache and to prevent side effects of other medications used to treat headaches. The medication can be repeated four times daily. Age Elixir (12.5 mg/tsp) 25 mg pill adult 1-2 tabs Antihistamines may cause drowsiness, especially with the first dose. Do not operate machinery or drive while under the effects of the medication. Do not combine the medication with alcohol, or with any other medication without talking to your doctor. ANTINAUSEA MEDICATION: You have been given a medication to suppress nausea and vomiting. This type of medication can be given as a shot, pill, or suppository. It will usually last for many hours. Pills and shots usually last six to eight hours, suppositories last about 12 hours. For the typical illness, only one or two doses of the medication may be necessary. Mild lightheadedness may occur. This type of medicine can cause drowsiness. Do not drive or operate dangerous machinery while under its influence. Do not mix with alcohol. See your doctor at once if you have muscle spasms or tightness, or uncontrollable motions (particularly of the neck, mouth, or jaw). Persistent vomiting or severe lightheadedness should also be evaluated by the physician. INTRAVENOUS COMPAZINE FOR HEADACHE: You have received therapy for headaches, using intravenous Compazine. This treatment is dramatically successful in relieving the headache in about 50 percent of cases. When it works, it provides a rapid method of eliminating the headache without resorting to narcotics (and the problems associated with them). Most patients still feel fully alert after the Compazine, but others may be slightly drowsy. It's best not to drive or work with machinery for six to eight hours. Do not take alcohol or other medication unless you discuss it with the doctor. If you develop tightness and spasms in your muscles, especially the neck and tongue, you should return. This is a side effect which can be treated. TORADOL INJECTION: You have been given an injection of ketorolac tromethamine (Toradol). This is an excellent, safe drug for pain control. It also has potent antiinflammatory action. You should have significant pain relief within about one hour. Toradol is not addicting and is non-sedating. It does not interfere with driving or work. Call or return if you develop itching, hives, shortness of breath, or rash. ICE PACKS: Apply ice packs frequently against the painful area. Many different schedules are recommended, such as "20 minutes on, 20 minutes off" or "one hour ice, two hours rest." If you need to work, you may need to go longer between ice treatments. You should plan to have the area ice packed AT LEAST one fourth of the time. The ice should be applied over the wrap, tape, or splint, or over a layer of cloth -- not directly against the skin. Some ice bags have a built-in cloth and can be put directly on the skin. WARM PACKS: After approximately two days, apply gentle heat (such as a heating pad or hot water bottle) for about 20 to 30 minutes about every two hours -- at least four times daily. Warmth and elevation will help you make a more rapid recovery , and will ease the pain considerably. Do not use HOT heat, and never apply heat for longer than 30 minutes. The continuous heat can invisibly damage skin and muscles -- even when no burn is seen on the surface. Damaged muscles can make you MORE sore. FOLLOW-UP CARE: If you have been referred to a physician for follow-up care, call the physician s office for an appointment as you were instructed or within the next two days. If you experience worsening or a significant change in your symptoms, notify the physician immediately or return to the Emergency Department at any time for re-evaluation. Prescriptions: Prochlorperazine Maleate [Compazine 10 mg Tablet] 10 mg PO ASDIR PRN #10 tablet PRN Reason: Referrals: HAFSA MOORE MD [Primary Care Provider] - Follow up as needed
[2018-05-02] MEDS ORDERED: NORMAL SALINE 1000 ML 1,000 ML IV ONE (17:23)
[2018-05-02 18:38] VITALS: BP 115/83
== END 2018-05-02 20:12 | disposition home or self-care (01) ==
LOC: ER 14:18
DX: R51 Headache (principal); M54.9 Dorsalgia, unspecified; G89.29 Other chronic pain; R11.2 Nausea with vomiting, unspecified; M54.2 Cervicalgia; M43.6 Torticollis; H53.8 Other visual disturbances; H53.2 Diplopia; F17.210 Nicotine dependence, cigarettes, uncomplicated; Z71.6 Tobacco abuse counseling; Z88.1 Allergy status to other antibiotic agents; Z91.040 Latex allergy status; Z88.8 Allergy status to other drugs, medicaments and biological substances; Z91.013 Allergy to seafood
CPT/HCPCS: 99406; 99284; 96361; 96374; 96375; 72125; J1200; S0119; J1885; J0780; J7030

== ENCOUNTER 2019-07-06 20:06 | Emergency (ER) | payer MEDICAID ==
--- NOTE | 2019-07-06 21:35 | ER Document Report ---
ED Medical Screen (RME) - General Chief Complaint: Difficulty Swallowing Stated Complaint: NECK PAIN,PROTRUSION Time Seen by Provider: 07/06/19 21:28 Primary Care Provider: HAFSA MOORE MD [Primary Care Provider] - Follow up as needed Mode of Arrival: Ambulatory Information source: Patient Notes: This 38-year-old female with history of Graves' disease presents emergency department with reports that approximately 1300 today she stood up to mop floor and she started here in the ocean felt dizzy. She reports she feels short of breath chest pain and difficulty breathing. She reports she was seen by her primary care provider who gave her a steroid injection and Benadryl IM was instructed to follow-up here. Patient does have an allergy to iodine. I have greeted and performed a rapid initial assessment of this patient. A comprehensive ED assessment and evaluation of the patient, analysis of test results and completion of the medical decision making process will be conducted by additional ED providers. Dictation of this chart was performed using voice recognition software; therefore, there may be some unintended grammatical errors. TRAVEL OUTSIDE OF THE [place] IN LAST 30 DAYS: No - Related Data Allergies/Adverse Reactions: clarithromycin [From Biaxin] Allergy (Severe, Verified 12/19/14 18:43) iodine [Iodine] Allergy (Severe, Verified 12/19/14 18:43) latex [Latex] Allergy (Severe, Verified 12/19/14 18:43) naproxen [Naproxen] Allergy (Severe, Verified 12/19/14 18:43) sucralfate [From Carafate] Allergy (Severe, Verified 12/19/14 18:43) Shortness of Breath shrimp Allergy (Uncoded 10/27/15 18:41) Home Medications: zofran. metroprol. gabapentin Past Medical History - Social History Drug Abuse: Marijuana - Past Medical History Cardiac Medical History: Pulmonary Medical History: Neurological Medical History: Endocrine Medical History: Reports: Hx Graves' Disease Renal/ Medical History: Reports: Hx Kidney Stones. Denies: Hx Peritoneal Dialysis GI Medical History: Reports: Hx Colonoscopy Musculoskeltal Medical History: Reports Hx Arthritis, Reports Hx Muscle Spasm, Reports Hx Musculoskeletal Deformity, Reports Hx Musculoskeletal Trauma Psychiatric Medical History: Reports: Hx Attention Deficit Hyperactivity Disorder, Hx Bipolar Disorder, Hx Depression, Hx Post Traumatic Stress Disorder Traumatic Medical History: Reports: Hx Fractures - Jaw wrist elbow Infectious Medical History: Past Surgical History: Reports: Hx Gynecologic Surgery - Multiple laparoscopies, Hx Hysterectomy, Hx Oral Surgery - General surgery, Hx Orthopedic Surgery - right arm surgery elbow and wrist, Hx Tubal Ligation - Immunizations Immunizations up to date: Yes Hx Diphtheria, Pertussis, Tetanus Vaccination: Yes Physical Exam - Vital signs Vitals: Temp Pulse Resp BP Pulse Ox 98.5 F 76 16 105/65 98 07/06/19 20:12 07/06/19 20:12 07/06/19 20:12 07/06/19 20:12 07/06/19 20:12 Course - Vital Signs Vital signs: Temp Pulse Resp BP Pulse Ox 98.5 F 76 16 105/65 98 07/06/19 20:12 07/06/19 20:12 07/06/19 20:12 07/06/19 20:12 07/06/19 20:12 Doctor's Discharge - Discharge Referrals: HAFSA MOORE MD [Primary Care Provider] - Follow up as needed
--- NOTE | 2019-07-06 22:20 | RADIOLOGY REPORT (SQ) ---
EXAM DESCRIPTION: XR NECK SOFT TISSUE COMPLETED DATE/TME: 07/06/2019 21:33 CLINICAL HISTORY: 38 years, Female, graves disease difficulty swallowing COMPARISON: None. NUMBER OF VIEWS: 2 TECHNIQUE: 2 views of the neck using soft tissue technique LIMITATIONS: None. FINDINGS: The airway is widely patent. The epiglottis is normal. The prevertebral soft tissues are normal. No radiopaque foreign body IMPRESSION: Unremarkable exam copyright 2010 [employer]- All Rights Reserved
--- NOTE | 2019-07-06 22:23 | RADIOLOGY REPORT (SQ) ---
EXAM DESCRIPTION: CLINICAL HISTORY: 38 years Female, cp COMPARISON: 01/25/2013. FINDINGS: Cardiomediastinal silhouette is relatively small. [id number] hyperinflation. No acute lung pleural bone abnormalities. IMPRESSION: Hyperinflation. No acute findings.
[2019-07-07 00:55] LABS: ABSOLUTE LYMPHOCYTES (AUTO) 0.6 10^3/uL (0.5-4.7); ABSOLUTE MONOCYTES (AUTO) 0.1 10^3/uL (0.1-1.4); ABSOLUTE NEUT (AUTO) 7.7 10^3/uL (1.7-8.2); BASOPHILS % (AUTO) 0.3 % (0-2); EOSINOPHILS % (AUTO) 0.1 % (0-6); HEMATOCRIT 41.1 % (36.0-47.0); HEMOGLOBIN 13.9 g/dL (12.0-15.5); LYMPHOCYTES % (AUTO) 6.7 % (13-45); MEAN CORPUSCULAR HEMOGLOBIN 33.8 pg (27.0-33.4); MEAN CORPUSCULAR HGB CONC 33.9 g/dL (32.0-36.0); MEAN CORPUSCULAR VOLUME 100 fl (80-97); MONOCYTES % (AUTO) 1.1 % (3-13); PLATELET COUNT 272 10^3/uL (150-450); RED BLOOD COUNT 4.12 10^6/uL (3.72-5.28); RED CELL DISTRIBUTION WIDTH 12.6 % (11.5-14.0); SEGMENTED NEUTROPHILS % (AUTO) 91.8 % (42-78); TOTAL CELLS COUNTED % (AUTO) 100 %; WHITE BLOOD COUNT 8.4 10^3/uL (4.0-10.5)
[2019-07-07 01:15] LABS: ALBUMIN 4.8 g/dL (3.5-5.0); ALKALINE PHOSPHATASE 49 U/L (38-126); ANION GAP 13 (5-19); ASPARTATE AMINO TRANSFERASE 23 U/L (14-36); BILIRUBIN,DIRECT 0.2 mg/dL (0.0-0.4); BILIRUBIN,TOTAL 0.8 mg/dL (0.2-1.3); BLOOD UREA NITROGEN 13 mg/dL (7-20); CALCIUM 9.9 mg/dL (8.4-10.2); CARBON DIOXIDE 22 mmol/L (22-30); CHLORIDE 106 mmol/L (98-107); GLUCOSE 132 mg/dL (75-110); POTASSIUM 4.5 mmol/L (3.6-5.0); TOTAL PROTEIN 7.8 g/dL (6.3-8.2)
[2019-07-07 01:56] LABS: FREE T3 1.89 pg/mL (2.77-5.27); FREE T4 (FREE THYROXINE) 0.21 ng/dL (0.78-2.19)
[2019-07-07 02:09] LABS: THYROID STIMULATING HORMONE 7.75 uIU/mL (0.47-4.68)
[2019-07-07 02:52] LABS: APPEARANCE,URINE CLEAR; BILIRUBIN,URINE NEGATIVE (NEGATIVE); COLOR,URINE YELLOW; GLUCOSE, URINE NEGATIVE (NEGATIVE); KETONES,URINE TRACE mg/dL (NEGATIVE); LEUKOCYTE ESTERASE,URINE NEGATIVE (NEGATIVE); NITRITE,URINE NEGATIVE (NEGATIVE); PROTEIN,URINE NEGATIVE (NEGATIVE); URINE SPECIFIC GRAVITY 1.017
--- NOTE | 2019-07-07 03:39 | RADIOLOGY REPORT (SQ) ---
CLINICAL HISTORY: eval for throat/soft tissue swelling COMPARISON: None. TECHNIQUE: CT NECK CHEST WITHOUT IV CONTRAST on 07/07/2019 2:43 AM CDT This exam was performed according to our departmental dose-optimization program, which includes automated exposure control, adjustment of the mA and/or kV according to patient size and/or use of iterative reconstruction technique. FINDINGS: The visualized portions of the brain and orbits are normal. The oral cavity, oropharynx and nasopharynx are normal. The parapharyngeal fat planes are preserved. The hypopharynx is unremarkable. The parotid and submandibular glands are grossly within normal limits. No intrinsic mass lesions are seen. . The paranasal sinuses and mastoid air cells are clear. No definite pathologically enlarged lymph nodes are identified. The thyroid gland is normal in size and configuration. The thoracic inlet is normal. The superior mediastinum and lung apices are normal. No acute osseous abnormalities are identified. IMPRESSION: No definite soft tissue abnormalities.
--- NOTE | 2019-07-07 04:23 | ER Document Report ---
ED ENT - General Chief Complaint: Difficulty Swallowing Stated Complaint: NECK PAIN,PROTRUSION Time Seen by Provider: 07/06/19 21:28 Primary Care Provider: HAFSA MOORE MD [Primary Care Provider] - Follow up as needed Mode of Arrival: Ambulatory Notes: This 38-year-old female with history of Graves' disease presents emergency department with reports that approximately 1300 today she stood up to mop floor and she started to feel dizzy. She reports she feels short of breath chest pain and difficulty breathing. She feels that she has swelling in her thyroid area. She reports she was seen by her primary care provider who gave her a steroid injection and Benadryl IM was instructed to follow-up here. Patient does have an allergy to iodine. TRAVEL OUTSIDE OF THE [place] IN LAST 30 DAYS: No - Related Data Allergies/Adverse Reactions: clarithromycin [From Biaxin] Allergy (Severe, Verified 12/19/14 18:43) iodine [Iodine] Allergy (Severe, Verified 12/19/14 18:43) latex [Latex] Allergy (Severe, Verified 12/19/14 18:43) naproxen [Naproxen] Allergy (Severe, Verified 12/19/14 18:43) sucralfate [From Carafate] Allergy (Severe, Verified 12/19/14 18:43) Shortness of Breath shrimp Allergy (Uncoded 10/27/15 18:41) Home Medications: zofran. metroprol. gabapentin Past Medical History - General Information source: Patient - Social History Smoking Status: Current Every Day Smoker Drug Abuse: Marijuana Family History: Reviewed & Not Pertinent Patient has suicidal ideation: No Patient has homicidal ideation: No - Past Medical History Cardiac Medical History: Pulmonary Medical History: Neurological Medical History: Endocrine Medical History: Reports: Hx Graves' Disease Renal/ Medical History: Reports: Hx Kidney Stones. Denies: Hx Peritoneal Dialysis GI Medical History: Reports: Hx Colonoscopy Musculoskeletal Medical History: Reports Hx Arthritis, Reports Hx Muscle Spasm, Reports Hx Musculoskeletal Deformity, Reports Hx Musculoskeletal Trauma Psychiatric Medical History: Reports: Hx Attention Deficit Hyperactivity Disorde r, Hx Bipolar Disorder, Hx Depression, Hx Post Traumatic Stress Disorder Traumatic Medical History: Reports: Hx Fractures - Jaw wrist elbow Infectious Medical History: Past Surgical History: Reports: Hx Gynecologic Surgery - Multiple laparoscopies, Hx Hysterectomy, Hx Oral Surgery - General surgery, Hx Orthopedic Surgery - right arm surgery elbow and wrist, Hx Tubal Ligation - Immunizations Immunizations up to date: Yes Hx Diphtheria, Pertussis, Tetanus Vaccination: Yes Review of Systems - Review of Systems Constitutional: See HPI EENT: See HPI Cardiovascular: See HPI Respiratory: No symptoms reported Gastrointestinal: No symptoms reported Genitourinary: No symptoms reported Female Genitourinary: No symptoms reported Musculoskeletal: No symptoms reported Skin: No symptoms reported Hematologic/Lymphatic: No symptoms reported Neurological/Psychological: No symptoms reported Physical Exam - Vital signs Vitals: Temp Pulse Resp BP Pulse Ox 98.5 F 76 16 105/65 98 07/06/19 20:12 07/06/19 20:12 07/06/19 20:12 07/06/19 20:12 07/06/19 20:12 - Notes Notes: PHYSICAL EXAMINATION: GENERAL: Well-appearing, well-nourished and in no acute distress. HEAD: Atraumatic, normocephalic. EYES: Pupils equal round and reactive to light, extraocular movements intact, conjunctiva are normal. ENT: Nares patent, oropharynx clear without exudates. Moist mucous membranes. NECK: Normal range of motion, supple without lymphadenopathy, mild anterior neck swelling noted. LUNGS: Breath sounds clear to auscultation bilaterally and equal. No wheezes rales or rhonchi. HEART: Regular rate and rhythm without murmurs ABDOMEN: Soft, nontender, nondistended abdomen. No guarding, no rebound. No masses appreciated. Female : deferred Musculoskeletal: Normal range of motion, no pitting or edema. No cyanosis. NEUROLOGICAL: Cranial nerves grossly intact. Normal speech, normal gait. Normal sensory, motor exams PSYCH: Normal mood, normal affect. SKIN: Warm, Dry, normal turgor, no rashes or lesions noted. Course - Re-evaluation Re-evalutation: Laboratory 07/07/19 07/07/19 07/07/19 00:40 00:40 00:40 WBC 8.4 RBC 4.12 Hgb 13.9 Hct 41.1 MCV 100 H MCH 33.8 H MCHC 33.9 RDW 12.6 Plt Count 272 Lymph % (Auto) 6.7 L Davie % (Auto) 1.1 L Eos % (Auto) 0.1 Baso % (Auto) 0.3 Absolute Neuts (auto) 7.7 Absolute Lymphs (auto) 0.6 Absolute Monos (auto) 0.1 Absolute Eos (auto) 0.0 Absolute Basos (auto) 0.0 Seg Neutrophils % 91.8 H Sodium 140.5 Potassium 4.5 Chloride 106 Carbon Dioxide 22 Anion Gap 13 BUN 13 Creatinine 0.80 Est GFR ( Amer) > 60 Est GFR (MDRD) Non-Af > 60 Glucose 132 H Calcium 9.9 Total Bilirubin 0.8 Direct Bilirubin 0.2 Neonat Total Bilirubin Not Reportable Neonat Direct Bilirubin Not Reportable Neonat Indirect Bili Not Reportable AST 23 ALT 14 Alkaline Phosphatase 49 Total Protein 7.8 Albumin 4.8 TSH 7.75 H Free T4 0.21 L Free T3 pg/mL 1.89 L Urine Color Urine Appearance Urine pH Ur Specific [place] Urine Protein Urine Glucose (UA) Urine Ketones Urine Blood Urine Nitrite Urine Bilirubin Urine Urobilinogen Ur Leukocyte Esterase Urine WBC (Auto) Urine RBC (Auto) Urine Bacteria (Auto) Squamous Epi Cells Auto Urine Mucus (Auto) Urine Ascorbic Acid Urine HCG, Qual 07/07/19 00:40 WBC RBC Hgb Hct MCV MCH MCHC RDW Plt Count Lymph % (Auto) Davie % (Auto) Eos % (Auto) Baso % (Auto) Absolute Neuts (auto) Absolute Lymphs (auto) Absolute Monos (auto) Absolute Eos (auto) Absolute Basos (auto) Seg Neutrophils % Sodium Potassium Chloride Carbon Dioxide Anion Gap BUN Creatinine Est GFR ( Amer) Est GFR (MDRD) Non-Af Glucose Calcium Total Bilirubin Direct Bilirubin Neonat Total Bilirubin Neonat Direct Bilirubin Neonat Indirect Bili AST ALT Alkaline Phosphatase Total Protein Albumin TSH Free T4 Free T3 pg/mL Urine Color YELLOW Urine Appearance CLEAR Urine pH 5.0 Ur Specific [place] 1.017 Urine Protein NEGATIVE Urine Glucose (UA) NEGATIVE Urine Ketones TRACE H Urine Blood NEGATIVE Urine Nitrite NEGATIVE Urine Bilirubin NEGATIVE Urine Urobilinogen 2.0 H Ur Leukocyte Esterase NEGATIVE Urine WBC (Auto) 1 Urine RBC (Auto) 0 Urine Bacteria (Auto) TRACE Squamous Epi Cells Auto <1 Urine Mucus (Auto) FEW Urine Ascorbic Acid NEGATIVE Urine HCG, Qual NEGATIVE Chest X-Ray 07/06/19 21:32 IMPRESSION: Hyperinflation. No acute findings. Soft Tissue Neck X-Ray 07/06/19 21:33 IMPRESSION: Unremarkable exam copyright 2011 [employer]- All Rights Reserved Soft Tissue Neck CT 07/07/19 02:43 IMPRESSION: No definite soft tissue abnormalities. Patient feels much improved at the time of my evaluation. She was initially seen by provider in triage and then spent several hours waiting for a room in the back. She does have mild swelling noted in her neck area. All of her labs are unremarkable other than a TSH of 7. Patient reports that she is compliant with her thyroid medications although she reports that her TSH level usually fluctuates widely. She has follow-up already established with her primary care physician. She will be discharged home at this time in stable condition. - Vital Signs Vital signs: Temp Pulse Resp BP Pulse Ox 98.5 F 63 18 100/60 100 07/07/19 05:00 07/07/19 05:00 07/07/19 05:00 07/07/19 05:00 07/07/19 05:00 - Laboratory Result Diagrams: 07/07/19 00:40 07/07/19 00:40 Laboratory results interpreted by me: 07/07/19 07/07/19 07/07/19 00:40 00:40 00:40 MCV 100 H MCH 33.8 H Lymph % (Auto) 6.7 L Davie % (Auto) 1.1 L Seg Neutrophils % 91.8 H Glucose 132 H TSH 7.75 H Free T4 0.21 L Free T3 pg/mL 1.89 L Urine Ketones Urine Urobilinogen 07/07/19 00:40 MCV MCH Lymph % (Auto) Davie % (Auto) Seg Neutrophils % Glucose TSH Free T4 Free T3 pg/mL Urine Ketones TRACE H Urine Urobilinogen 2.0 H Discharge - Discharge Clinical Impression: Neck swelling Condition: Stable Disposition: HOME, SELF-CARE Additional Instructions: Your work-up here in the emergency department today was unremarkable. A copy of your labs and CT report are being given to you so that you can follow back up with your primary care provider and your dyslexia teacher. It is important for you to call and schedule an appointment with them at your earliest convenience. The CT of your neck did not show any definite swelling of the thyroid or soft tissues. I am starting you on a Dosepak of prednisone. Please take this as prescribed, take the first dose today. Use [id number] medication such as Tylenol or ibuprofen for any pain. Return to the emergency department with any new or worsening symptoms. Prescriptions: Prednisone 10 mg PO ASDIR PRN #21 tablet PRN Reason: Referrals: HAFSA MOORE MD [Primary Care Provider] - Follow up as needed
[2019-07-07 05:01] VITALS: BP 100/60
--- NOTE | 2019-07-07 07:36 | EKG REPORT ---
SEVERITY:- NORMAL ECG - SINUS BRADYCARDIA : Confirmed by: Arron Kinney MD 07-Jul-2019 07:35:59
== END 2019-07-07 05:15 | disposition home or self-care (01) ==
LOC: ER 20:06
DX: R22.1 Localized swelling, mass and lump, neck (principal); E05.00 Thyrotoxicosis with diffuse goiter without thyrotoxic crisis or storm; Z79.899 Other long term (current) drug therapy; R42 Dizziness and giddiness; Z88.1 Allergy status to other antibiotic agents; Z91.040 Latex allergy status; Z91.013 Allergy to seafood; Z88.8 Allergy status to other drugs, medicaments and biological substances; F17.200 Nicotine dependence, unspecified, uncomplicated; F12.10 Cannabis abuse, uncomplicated
CPT/HCPCS: 36415; 70360; 70490; 71046; 80053; 81001; 81025; 84439; 84443; 84481; 85025; 93005; 93010; 99284

== ENCOUNTER 2020-04-11 18:40 | Emergency (ER) | payer MEDICAID ==
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
--- NOTE | 2020-04-11 20:56 | RADIOLOGY REPORT (SQ) ---
XR RIBS UNILATERAL WITH CHEST HISTORY: Rib pain. COMPARISON: None. FINDINGS: No rib fractures are seen. The surrounding lungs are clear. No pneumothorax or pleural effusions are seen. IMPRESSION: No left-sided rib fractures are seen. If there is high clinical concern or point tenderness, consider CT scan.
--- NOTE | 2020-04-11 20:58 | RADIOLOGY REPORT (SQ) ---
EXAM DESCRIPTION: XR MANDIBLE 4 OR MORE VIEWS COMPLETED DATE/TME: 04/11/2020 20:06 CLINICAL HISTORY: 39 years, Female, pain and injury COMPARISON: None. NUMBER OF VIEWS: 4 TECHNIQUE: 4 views of the mandible LIMITATIONS: None. FINDINGS: No radiographic evidence for acute fracture. Soft tissues are unremarkable. Paranasal sinuses are well aerated. IMPRESSION: No evidence for acute osseous abnormality copyright 2010 [employer]- All Rights Reserved
[2020-04-11 21:59] VITALS: BP 122/84
[2020-04-11] MEDS ORDERED: HYDROCODONE/ACETAMINOPHEN 5-325 MG TABLET PO ONE (22:02)
== END 2020-04-11 22:14 | disposition home or self-care (01) ==
LOC: EEVIPCON 18:40 → ER 18:40
DX: S20.212A Contusion of left front wall of thorax, initial encounter (principal); S00.83XA Contusion of other part of head, initial encounter; S40.022A Contusion of left upper arm, initial encounter; S40.021A Contusion of right upper arm, initial encounter; Y04.2XXA Assault by strike against or bumped into by another person, initial encounter
CPT/HCPCS: 70110; 99284